=== PATIENT | male | born 1995 | race Hispanic/Latino ===

== ENCOUNTER 2017-09-24 22:54 | Emergency (ER) | payer BC ==
[~2017-09-24] VITALS: Ht 177.8 cm; Wt 124.3 kg
== END 2017-09-25 02:13 | disposition home or self-care (01) ==
LOC: ED 22:54 → EDSEX 22:55 → ED 22:55
PROC: 0W3Q7ZZ Control Bleeding in Respiratory Tract, Via Natural or Artificial Opening (ICD-10-PCS; principal; 2017-09-24)
DX: R04.0 Epistaxis (principal); J06.9 Acute upper respiratory infection, unspecified; F17.200 Nicotine dependence, unspecified, uncomplicated
CPT/HCPCS: 30901; 99283